=== PATIENT | female | born 1950 | race Caucasian/White ===

== ENCOUNTER 2020-04-29 08:07 | Outpatient (CLI) | payer MEDICARE, SELFPAY ==
--- NOTE | 2020-04-29 08:13 | MM_ITS ---
WS: [id number] Bilateral screening digital mammogram, 04/29/2020 Clinical Data: SCREENING Comparison: 06/01/2017, 05/16/2015, 05/12/2015, 04/25/2014, 04/18/2013, 04/05/2013, 05/17/2011, 2009, 04/08/2009, 01/09/2008. Findings: The breast parenchymal pattern shows fibroglandular tissue No spiculated masses or clustered calcific ations are seen. There are no secondary signs of carcinoma. MM/[place] [id number] Impression: 1. Negative bilateral mammogram unchanged. 2. Recommend annual screening mammograms. BIRADS: 1-Negative FOLLOW UP: 1 Year Follow-up The CAD credit report checker was used.
== END 2020-04-29 08:08 | disposition home or self-care (01) ==
LOC: RADSHAW 08:11
PROVIDERS: PCP Family Medicine; Visit Provider Family Medicine
DX: Z12.31 Encounter for screening mammogram for malignant neoplasm of breast (principal)
CPT/HCPCS: 77067

== ENCOUNTER → 2020-06-30 14:58 | Outpatient (BNVA) | payer MEDICARE, SELFPAY | PROVIDERS: PCP Family Medicine; Visit Provider Nurse Practitioner Family | DX: J06.9 Acute upper respiratory infection, unspecified (principal) | CPT/HCPCS: 87635 ==

== ENCOUNTER 2020-12-09 23:18 | Emergency (ER) | payer MEDICARE, SELFPAY ==
[2020-12-09 23:40] VITALS: BP 180/92; PULSE 77; RESP 16; TEMP 36.1; O2SAT 97; BMI 23.3
--- NOTE | 2020-12-10 00:45 | XRR_ITS ---
PROCEDURE INFORMATION: Exam: XR Chest Exam date and time: 12/10/2020 12:45 AM Age: 70 years old Clinical indication: Prior surgery; Surgery type: Chest port. ; Patient HX: Hypertensive. History of afib and ovarian cancer. ; Additional info: Cough TECHNIQUE: Imaging protocol: XR of the chest. Views: 1 view. COMPARISON: CR Chest 1 [place] [id number] 04/09/2019 8:15 PM FINDINGS: Tubes, catheters and devices: There is a left MediPort the tip in the mid superior vena cava. Lungs: Unremarkable. No consolidation. Pleural spaces: Unremarkable. No pleural effusion. No pneumothorax. Heart/Mediastinum: Unremarkable. No cardiomegaly. Bones/joints: Unremarkable. XR/XR chest 1V portable [id number] IMPRESSION: No acute disease.
--- NOTE | 2020-12-10 00:46 | W.ED.GENADLT ---
HPI - General Adult General: Chief complaint: Headache Stated complaint: high bp Time Seen by Provider: 12/10/20 00:40 History of Present Illness: HPI narrative: This patient is a 70-year-old female who presents to the emergency department complaint of headache related to high blood pressure. Patient states she has been having issues with her blood pressure and keeping a blood pressure log. Patient does provide a blood pressure log for review. Patient just today along with us checked her blood pressure at the least 12-15 times. Some with being in within 2 minutes of the previous checking. Patient states she gets anxious about her blood pressure so she takes it often. Patient's blood pressure upon arrival was 207/109. Patient states mild headache but does not describe any other significant significant symptoms. Patient states she also is undergoing chemotherapy due to ovarian cancer. Will do medical evaluation treat as needed Onset (ago): day(s) Location: head Severity: similar to prior episodes Associated symptoms: Deny chest pain, dyspnea, headache(s), nausea, rash, palpitations or vomiting Review of Systems General: Reports: 10 or more systems reviewed and unremarkable except in HPI and below Const: Denies: fever(s), chills, body aches or fatigue Eyes: Denies: change in vision or blurry vision ENMT: Denies: throat pain, hoarseness or mouth pain Card: Denies: chest pain, palpitations, irregular heart rhythm, edema, swelling of feet/ankles or lightheadedness Resp: Denies: dyspnea, productive cough, non-productive cough, wheezing or pain on inspiration GI: Denies: abdominal pain, nausea or vomiting : Denies: flank pain, difficulty voiding, dysuria, urinary frequency, urinary urgency or urinary hesitancy Musc: Denies: neck pain, back pain, extremity pain, extremity swelling, joint pain, joint swelling, joint redness, joint warmth or limited range of motion Skin/Breast: Denies: rash, pruritus, erythema or skin tenderness Neuro: Denies: headache(s), numbness in extremities or weakness in extremities Psych: Denies: anxiety or depression PFSH ED PFSH: Medical History Accelerated essential hypertension Ovarian cancer at [facility] Social History Smoking and tobacco status: never smoked Household members: spouse Marital status: Current occupational status: retired Physical Exam Const: COMMON NORMALS: no acute distress, average body habitus, patient oriented x3, no limitations, healthy appearing, alert and well nourished HENMT: COMMON NORMALS: normocephalic, atraumatic, hearing grossly normal bilaterally, external ears normal, EAC's normal, TM's normal bilaterally, Normal external nose present, Normal nasal mucous membranes and turbinates present, moist oral mucous membranes, oropharynx normal, dentition normal and gingiva normal HEAD & SCALP: normocephalic and atraumatic NOSE: Normal external nose present and Normal nasal mucous membranes and turbinates present EXTERNAL EAR: Yes external ears normal EXTERNAL AUDITORY CANAL: EAC's normal TYMPANIC MEMBRANE: TM's normal bilaterally Neck/C-Spine: COMMON NORMALS: full ROM, no lymphadenopathy, supple, no meningeal signs, no JVD, Thyroid normal and No carotid bruits THYROID: Thyroid normal Chest: COMMONS NORMALS: normal inspection of the chest, normal palpation of entire chest wall, normal inspection of the breasts and normal palpation of the breasts Breast/axilla inspection: Yes normal inspection of the breasts BREAST/AXILLA PALPATION: Yes normal palpation of the breasts Resp: COMMON NORMALS: normal respiratory effort, No retractions, No use of accessory muscles, clear to auscultation bilaterally and percussion normal AUSCULTATION: clear to auscultation bilaterally PERCUSSION: percussion normal Cardio: COMMON NORMALS: no JVD, regular rate, regular rhythm, S1 normal heart sound present, S2 normal heart sound present, No gallops present (Cardio), No clicks present (Cardio), No murmurs present (Cardio), No rub (Cardio) and Peripheral pulses 2+ throughout RATE: regular rate RHYTHM: regular rhythm HEART SOUNDS: S1 normal heart sound present and S2 normal heart sound present PERIPHERAL PULSES: Peripheral pulses 2+ throughout GI: COMMON NORMALS: Normal to inspection, nondistended, normoactive bowel sounds present, Soft to palpation, non-tender, No hepatosplenomegaly present, no masses and no bruits PALPATION: Yes Soft to palpation and Yes No hepatosplenomegaly present : COMMON NORMALS: Yes no CVA tenderness BLADDER/KIDNEY EXAM: Yes no CVA tenderness Back/Pelvis: COMMON NORMALS: no CVA tenderness, thoracic and lumbar spine normal to inspection, no thoracic nor lumbar tenderness, thoraco-lumbar ROM normal and straight leg raise negative bilaterally Extremity: COMMON NORMALS: normal to inspection, full ROM, capillary refill normal, no joint enlargement, no clubbing, cyanosis or edema, no calf tenderness and no pedal edema Neuro: COMMON NORMALS: patient oriented x3 SENSORIUM/ORIENTATION: Yes alert MENINGEAL SIGNS: Yes no meningeal signs Course Reevaluation(s): Reevaluation #1: Patient is much improved patient is resting comfortably. Patient's blood pressures improved to 149/81. Pulse ox 77% heart rate 75. Patient states she is feeling much relaxed now after given the status of Ativan. Patient is to maintain blood pressure log as instructed. Follow-up with primary care physician. Patient may need additional medications to help with anxiety and tremor. Patient and family state understanding patient was offered a CT scan of the head with the patient declines. She will be given Tylenol discharge. Time: 02:14 Vital Signs: Vital signs: Vital Signs Temperature 97.0 F L 12/09/20 23:40 Pulse Rate 79 12/10/20 01:24 Respiratory Rate 19 H 12/10/20 01:24 Blood Pressure 176/93 12/10/20 01:24 Pulse Oximetry 97 12/10/20 01:24 MDM - General Adult MDM Narrative: Medical decision making narrative: This patient is a 70-year-old female who presents to the emergency department complaint of headache related to high blood pressure. Patient states she has been having issues with her blood pressure and keeping a blood pressure log. Patient does provide a blood pressure log for review. Patient just today along with us checked her blood pressure at the least 12-15 times. Some with being in within 2 minutes of the previous checking. Patient states she gets anxious about her blood pressure so she takes it often. Patient's blood pressure upon arrival was 207/109. Patient states mild headache but does not describe any other significant significant symptoms. Patient states she also is undergoing chemotherapy due to ovarian cancer. Will do medical evaluation treat as needed Patient is much improved patient is resting comfortably. Patient's blood pressures improved to 149/81. Pulse ox 77% heart rate 75. Patient states she is feeling much relaxed now after given the status of Ativan. Patient is to maintain blood pressure log as instructed. Follow-up with primary care physician. Patient may need additional medications to help with anxiety and tremor. Patient and family state understanding patient was offered a CT scan of the head with the patient declines. She will be given Tylenol discharge. Lab Data: Labs: Lab Results 12/10/20 12/10/20 12/10/20 Range/Units 00:53 00:54 00:54 WBC 9.2 (4.0-10.0) 10^3/ uL RBC 2.98 L (4.1-5.3) 10^6/u L Hgb 9.9 L (11.5-15.3) g/dL Hct 30.2 L (37.0-47.0) % MCV 101.3 H (81-99) fL MCH 33.2 (28.0-34.0) pg MCHC 32.8 (30.0-36.0) g/dL RDW 14.5 (12.1-15.1) % Plt Count 169 (130-400) 10^3/c mm MPV 10.2 (7.4-10.4) fL Neut % (Auto) 75.6 % Lymph % (Auto) 8.8 % [place] % (Auto) 10.1 % Eos % (Auto) 4.7 % Baso % (Auto) 0.5 % Neut # (Auto) 6.94 (1.8-7.7) 10^3/u L Lymph # (Auto) 0.8 (0.8-4.8) 10^3/u L [place] # (Auto) 0.9 (0.2-0.9) 10^3/u L Eos # (Auto) 0.4 (0.0-0.8) 10^3/u L Baso # (Auto) 0.1 (0.0-0.1) 10^3/u L Nucleated RBC % (a uto) 0 % Nucleated RBCs # 0.0 /100WBC PT 12.90 (12.1-14.9) SECO NDS INR 0.95 (0.8-1.2) APTT 27.8 (23.9-36.7) SECO NDS Sodium (136-145) mmol/L Potassium (3.5-5.1) mmol/L Chloride (98-107) mmol/L Carbon Dioxide (22-29) mmol/L Anion Gap (5-19) BUN (8-23) mg/dL Creatinine (0.5-0.9) mg/dL GFR Calculation (90-130) mL/min Glucose (65-115) mg/dL Calculated Osmolal ity (285-295) mOsm/k g Calcium (8.5-10.5) mg/dL Total Bilirubin (0.15-1.2) mg/dL AST (0-32) U/L ALT (0-33) U/L Alkaline Phosphata se (35-105) IU/L Total Protein (6.6-8.7) g/dL Albumin (3.5-5.2) g/dL Globulin (1.3-4.6) g/dL Urine Color Yellow (Yellow) Urine Appearance Clear (CLEAR) Urine pH 5 (5-7) Ur Specific Gravit y 1.010 (1.005-1.030) Urine Protein 3+ H (Negative) Urine Glucose (UA) Norm (Normal) Urine Ketones Negative (Negative) Urine Blood 2+ H (Negative) Urine Nitrate Negative (Negative) Urine Bilirubin Neg (Negative) Urine Urobilinogen Norm (Negative) mg/dL Ur Leukocyte Vaishnavi ase Negative (Negative) Urine RBC 0-4 H (0-2) /hpf Urine WBC 0-4 H (0-5) /hpf Ur Squamous Epith Cells 0-4 H (0-5) /hpf Amorphous Sediment 1+ /hpf Urine Bacteria Trace (NONE) /hpf Hyaline Casts 0-4 H /lpf Urine Mucus 2+ /hpf 06/16/21 Range/Units 00:54 WBC (4.0-10.0) 10^3/ uL RBC (4.1-5.3) 10^6/u L Hgb (11.5-15.3) g/dL Hct (37.0-47.0) % MCV (81-99) fL MCH (28.0-34.0) pg MCHC (30.0-36.0) g/dL RDW (12.1-15.1) % Plt Count (130-400) 10^3/c mm MPV (7.4-10.4) fL Neut % (Auto) % Lymph % (Auto) % [place] % (Auto) % Eos % (Auto) % Baso % (Auto) % Neut # (Auto) (1.8-7.7) 10^3/u L Lymph # (Auto) (0.8-4.8) 10^3/u L [place] # (Auto) (0.2-0.9) 10^3/u L Eos # (Auto) (0.0-0.8) 10^3/u L Baso # (Auto) (0.0-0.1) 10^3/u L Nucleated RBC % (a uto) % Nucleated RBCs # /100WBC PT (12.1-14.9) SECO NDS INR (0.8-1.2) APTT (23.9-36.7) SECO NDS Sodium 137 (136-145) mmol/L Potassium 3.4 L (3.5-5.1) mmol/L Chloride 102 (98-107) mmol/L Carbon Dioxide 22 (22-29) mmol/L Anion Gap 16.4 (5-19) BUN 19 (8-23) mg/dL Creatinine 1.1 H (0.5-0.9) mg/dL GFR Calculation 49.4 L (90-130) mL/min Glucose 116 H (65-115) mg/dL Calculated Osmolal ity 287 (285-295) mOsm/k g Calcium 8.7 (8.5-10.5) mg/dL Total Bilirubin 0.2 (0.15-1.2) mg/dL AST 21 (0-32) U/L ALT 12 (0-33) U/L Alkaline Phosphata se 90 (35-105) IU/L Total Protein 6.5 L (6.6-8.7) g/dL Albumin 3.7 (3.5-5.2) g/dL Globulin 2.8 (1.3-4.6) g/dL Urine Color (Yellow) Urine Appearance (CLEAR) Urine pH (5-7) Ur Specific Gravit y (1.005-1.030) Urine Protein (Negative) Urine Glucose (UA) (Normal) Urine Ketones (Negative) Urine Blood (Negative) Urine Nitrate (Negative) Urine Bilirubin (Negative) Urine Urobilinogen (Negative) mg/dL Ur Leukocyte Vaishnavi ase (Negative) Urine RBC (0-2) /hpf Urine WBC (0-5) /hpf Ur Squamous Epith Cells (0-5) /hpf Amorphous Sediment /hpf Urine Bacteria (NONE) /hpf Hyaline Casts /lpf Urine Mucus /hpf Discharge Plan Discharge Patient Disposition: Home Clinical Impression: Accelerated essential hypertension, Ovarian cancer, Headache, Tremor, Anxiety Condition: Stable Prescriptions: No Action aspirin 81 mg tablet,delayed release (DR/EC) 81 mg PO DAILY RF: 0 sertraline [Zoloft] 50 mg tablet 50 mg PO DAILY RF: 0 pantoprazole [Protonix] 40 mg tablet,delayed release (DR/EC) 40 mg PO DAILY RF: 0 Discharge Orders: Discharge ED (Routine); Ordered 12/10/20 Ordered By: Alexis Martinez Referrals: Luis Felipe Ramirez MD [Primary Care Provider] - Discharge Diet: Advance as tolerated Discharge Activity: Resume usual activity Patient Instructions: Opioid Safety Activity Restrictions/Additional Instructions: Patient is to maintain blood pressure log as instructed. Follow-up with primary care physician. Patient may need additional medications to help with anxiety and tremor. She will be given Tylenol discharge. 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
[2020-12-10 01:07] LABS: Glucose Urine UA Norm (Normal); Ketones Urine Negative (Negative); Protein Urine 3+ (Negative); Urine Appearance Clear (CLEAR); Urine Color Yellow (Yellow); pH Urine 5 (5-7)
[2020-12-10 01:08] LABS: Add Urine Microscopic? YES; Amorphous Sediment Urine 1+ /hpf; Bacteria Urine TRACE /hpf; Bilirubin Urine Neg (Negative); Blood Urine 2+ (Negative); Hyaline Casts Urine 0-4 /lpf; Leukocyte Esterase Urine Negative (Negative); Mucus Urine 2+ /hpf; Nitrate Urine Negative (Negative); RBC Urine 0-4 /hpf (0-2); Squamous Epithelial Cell Urine 0-4 /hpf (0-5); Urobilinogen Urine Norm (Negative); WBC Urine 0-4 /hpf (0-5)
[2020-12-10 01:16] LABS: INR 0.95 (0.8-1.2)
[2020-12-10 01:17] LABS: Partial Thromboplastin Time 27.8 SECONDS (23.9-36.7)
[2020-12-10] MEDS: hyDRALAzine 20 mg/mL INJ 1 mL 10 MG IVP (01:18)
[2020-12-10] MEDS: LORazepam 2 mg/mL INJ 1 mL IVP (01:19)
[2020-12-10 01:24] VITALS: BP 176/93; PULSE 79; RESP 19; O2SAT 97
[2020-12-10 01:24] LABS: Alanine Aminotransferase 12 U/L (0-33); Albumin Level 3.7 g/dL (3.5-5.2); Alkaline Phosphatase 90 IU/L (35-105); Anion Gap 16.4 (5-19); Aspartate Amino Transferase 21 U/L (0-32); Blood Urea Nitrogen 19 mg/dL (8-23); Calcium 8.7 mg/dL (8.5-10.5); Carbon Dioxide 22 mmol/L (22-29); Chloride 102 mmol/L (98-107); Globulin 2.8 g/dL (1.3-4.6); Glomerular Filtration Rate 49.4 mL/min (90-130); Glucose 116 mg/dL (65-115); Osmolality Calculated 287 mOsm/kg (285-295); Potassium 3.4 mmol/L (3.5-5.1); Sodium 137 mmol/L (136-145); Total Bilirubin 0.2 mg/dL (0.15-1.2); Total Protein 6.5 g/dL (6.6-8.7)
[2020-12-10 01:30] LABS: Basophils # 0.1 10^3/uL (0.0-0.1); Basophils % 0.5 %; Eosinophils # 0.4 10^3/uL (0.0-0.8); Eosinophils % 4.7 %; Hematocrit 30.2 % (37.0-47.0); Hemoglobin 9.9 g/dL (11.5-15.3); Lymphocytes # 0.8 10^3/uL (0.8-4.8); Lymphocytes % 8.8 %; Mean Corpuscular HGB Conc 32.8 g/dL (30.0-36.0); Mean Corpuscular Hemoglobin 33.2 pg (28.0-34.0); Mean Corpuscular Volume 101.3 fL (81-99); Mean Platelet Volume 10.2 fL (7.4-10.4); Monocytes # 0.9 10^3/uL (0.2-0.9); Monocytes % 10.1 %; Neutrophils # 6.94 10^3/uL (1.8-7.7); Neutrophils % 75.6 %; Nucleated Red Blood Cells % 0 %; Platelet Count 169 10^3/cmm (130-400); Red Blood Count 2.98 10^6/uL (4.1-5.3); Red Cell Distribution Width 14.5 % (12.1-15.1); White Blood Count 9.2 10^3/uL (4.0-10.0)
[2020-12-10 02:35] VITALS: BP 161/85; PULSE 81; RESP 18; O2SAT 97
== END 2020-12-10 02:35 | disposition home or self-care (01) ==
PROVIDERS: Emergency Provider Emergency Medicine; PCP Family Medicine
DX: R51.9 Headache, unspecified (principal); I10 Essential (primary) hypertension; R25.1 Tremor, unspecified; F41.9 Anxiety disorder, unspecified; C56.9 Malignant neoplasm of unspecified ovary; Z79.82 Long term (current) use of aspirin
CPT/HCPCS: 71045; 80053; 81001; 85025; 85610; 85730; 96374; 96375; 99283; J0360; J2060

== ENCOUNTER 2020-12-18 12:05 | Outpatient (CLI) | payer MEDICARE, SELFPAY ==
--- NOTE | 2020-12-18 | XR_ITS ---
WS: [id number] Chest 2 views, 12/18/2020 Clinical Data: DYSPNEA Comparison: Portable chest, 12/10/2020. Findings: No nodules, masses or effusions are seen. The heart is normal. The pulmonary vascularity is not increased. No pneumonia or pneumothorax is seen. The left Port-A-Cath remains in good position. The aortic arch and descending aorta show tortuosity. XR/XR chest 2V* [id number] Impression: Atherosclerosis.
--- NOTE | 2020-12-18 12:13 | NM_ITS ---
WS: [id number] NUCLEAR MEDICINE VENTILATION/PERFUSION LUNG SCAN HISTORY: DYSPNEA/?PE COMPARISON: 12/18/2020 chest radiograph TECHNIQUE: Ventilation: 32.4 mCi of Technetium 99 DTPA aerosol inhaled. Perfusion: 4.8 mCi of technetium 99m MAA IV. There are no wedge-shaped defects within either lung. Cardiac silhouette is identified and matched. T here are no unmatched defects. NM/NM pul vent and perfus* [id number] IMPRESSION: Normal VQ scan. No pulmonary embolism.
== END 2020-12-18 12:06 | disposition home or self-care (01) ==
LOC: RAD 12:10
PROVIDERS: PCP Family Medicine; Visit Provider Family Medicine
DX: R06.00 Dyspnea, unspecified (principal); I70.90 Unspecified atherosclerosis
CPT/HCPCS: 71046; 78014; A9540; A9567

== ENCOUNTER 2020-12-19 09:38 | Outpatient (CLI) | payer MEDICARE, SELFPAY ==
--- NOTE | 2020-12-19 10:00 | USCV_ITS ---
Vanessa Reis Age: 70 Gender: F : 1950 Exam Date: 12/19/2020 10:06 Ordering Phys: Luis Felipe Ramirez MD Technologist: ZULEMA [place] [facility] [facility] [place]ication: HTN Aortic Velocity @ SMA (cm/s) 133 RIGHT KIDNEY LEFT KIDNEY Velocity (cm/s) Velocity (cm/s) Sys/Gibbons Sys/Gibbons Resistive Index Resistive Index 58.0 / 14.0 0.76 Proximal Renal Artery 66.8 / 16.0 0.76 55.9 / 21.5 0.62 Mid Renal Artery 75.1 / 14.6 0.81 61.2 / 19.3 0.68 Distal Renal Artery 65.4 / 11.8 0.82 44.0 / 18.3 0.59 Hilar 36.9 / 7.0 0.81 18.0 / 6.9 0.62 Upper Pole 34.4 / 10.7 0.69 21.9 / 8.2 0.63 Mid Pole 16.2 / 3.8 0.77 19.3 / 6.4 0.67 Lower Pole 39.2 / 8.6 0.78 0.50 Renal Aortic Ratio 0.56 Accleration Index (cm/sec2) 807.00 Hilar 544.00 429.00 Upper Pole 843.00 627.00 Mid Pole 257.00 429.00 Lower Pole 389.00 109.1 Kidney Length (mm) 109.4 FINDINGS No evidence of abdominal aortic aneurysm. There is no evidence of hemodynamically significant right renal artery stenosis. There is no evidence of hemodynamically significant left renal artery stenosis. CONCLUSIONS There is no sonographic evidence of hemodynamically significant renal artery stenosis bilaterally. Dr. Anita Thomas DO (Electronically Signed) Final Date: 19 December 2020 10:47 S
== END 2020-12-19 09:39 | disposition home or self-care (01) ==
PROVIDERS: PCP Family Medicine; Visit Provider Family Medicine
DX: I16.0 Hypertensive urgency (principal); I10 Essential (primary) hypertension
CPT/HCPCS: 93975

== ENCOUNTER → 2021-02-10 09:58 | Day surgery (SDC) | payer MEDICARE, SELFPAY ==
[2021-02-10 10:10] VITALS: BP 177/88; PULSE 87; RESP 18; TEMP 36.8; O2SAT 97
[2021-02-10 10:14] VITALS: BMI 24.4
== END ==
PROVIDERS: PCP Family Medicine; Visit Provider Nurse Practitioner Family
DX: C57.01 Malignant neoplasm of right fallopian tube (principal)
CPT/HCPCS: 96368; 96523

== ENCOUNTER 2021-09-10 11:02 | Outpatient (CLI) | payer MEDICARE, SELFPAY ==
--- NOTE | 2021-09-10 12:47 | MM_ITS ---
WS: [id number] BILATERAL 3D TOMOSYNTHESIS DIGITAL SCREENING MAMMOGRAPHY WITH CAD CLINICAL INFORMATION: SCREEN HISTORY: Screening mammogram. No current complaints. COMPARISON: April 29, 2020 TECHNIQUE: Bilateral CC and MLO views. FINDINGS: Scattered fibroglandular densities bilaterally. No suspicious focal mass, asymmetry, calcifications, or architectural distortion. Punctate and lucent centered calcifications. No evidence of malignancy. MM/[place] [id number] IMPRESSION: BI-RADS: 2-Benign FOLLOW UP: 1 Year Follow-up Recommend return to annual screening mammography.
== END 2021-09-10 11:03 | disposition home or self-care (01) ==
LOC: RADSHAW 11:10
PROVIDERS: PCP Family Medicine; Visit Provider Family Medicine
DX: Z12.31 Encounter for screening mammogram for malignant neoplasm of breast (principal)
CPT/HCPCS: 77063; 77067

== ENCOUNTER → 2022-04-22 08:04 | Outpatient (BNVA) | payer MEDICARE, SELFPAY | PROVIDERS: PCP Family Medicine; Visit Provider Podiatrist Foot & Ankle Surgery | DX: L60.0 Ingrowing nail (principal); L60.8 Other nail disorders; L60.3 Nail dystrophy; M21.611 Bunion of right foot; M21.612 Bunion of left foot; M21.621 Bunionette of right foot; M21.622 Bunionette of left foot; G62.0 Drug-induced polyneuropathy; T45.1X5A Adverse effect of antineoplastic and immunosuppressive drugs, initial encounter | CPT/HCPCS: 99203 ==

== ENCOUNTER → 2022-06-03 08:45 | Outpatient (BNVA) | payer MEDICARE, SELFPAY | PROVIDERS: PCP Family Medicine; Visit Provider Podiatrist Foot & Ankle Surgery | DX: L60.0 Ingrowing nail (principal); G62.0 Drug-induced polyneuropathy; T45.1X5A Adverse effect of antineoplastic and immunosuppressive drugs, initial encounter; L60.8 Other nail disorders; L60.3 Nail dystrophy; M21.611 Bunion of right foot; M21.612 Bunion of left foot; M21.621 Bunionette of right foot; M21.622 Bunionette of left foot; Z92.21 Personal history of antineoplastic chemotherapy | CPT/HCPCS: 99213 ==

== ENCOUNTER → 2022-07-09 15:44 | Outpatient (BNVA) | payer MEDICARE, SELFPAY | PROVIDERS: PCP Family Medicine; Visit Provider Emergency Medicine | DX: S49.91XA Unspecified injury of right shoulder and upper arm, initial encounter (principal); X58.XXXA Exposure to other specified factors, initial encounter | CPT/HCPCS: 73060; 73080 ==

== ENCOUNTER → 2022-07-15 14:31 | Outpatient (BNVA) | payer MEDICARE, SELFPAY | PROVIDERS: PCP Family Medicine; Referring Provider Emergency Medicine; Visit Provider Physician Assistant | DX: S52.121A Displaced fracture of head of right radius, initial encounter for closed fracture (principal); S42.209A Unspecified fracture of upper end of unspecified humerus, initial encounter for closed fracture; W19.XXXA Unspecified fall, initial encounter | CPT/HCPCS: 73030; 73080; 99203 ==

== ENCOUNTER → 2022-08-05 09:50 | Outpatient (BNVA) | payer MEDICARE, SELFPAY | PROVIDERS: PCP Family Medicine; Visit Provider Physician Assistant | DX: S42.209A Unspecified fracture of upper end of unspecified humerus, initial encounter for closed fracture (principal); S59.801A Other specified injuries of right elbow, initial encounter; X58.XXXA Exposure to other specified factors, initial encounter | CPT/HCPCS: 11750; 73030; 73070; 99213 ==

== ENCOUNTER 2022-08-17 08:37 | Outpatient (RCR) | payer MEDICARE, SELFPAY | END 2022-08-24 23:59 | disposition home or self-care (01) | LOC: SPT 08:37 | PROVIDERS: PCP Family Medicine; Visit Provider Physician Assistant | DX: S42.211D Unspecified displaced fracture of surgical neck of right humerus, subsequent encounter for fracture with routine healing (principal); X58.XXXD Exposure to other specified factors, subsequent encounter | CPT/HCPCS: 97110; 97161 ==

== ENCOUNTER → 2022-08-19 09:14 | Outpatient (BNVA) | payer MEDICARE, SELFPAY | PROVIDERS: PCP Family Medicine; Visit Provider Physician Assistant | DX: S42.201D Unspecified fracture of upper end of right humerus, subsequent encounter for fracture with routine healing (principal); X58.XXXD Exposure to other specified factors, subsequent encounter; L60.0 Ingrowing nail; G62.0 Drug-induced polyneuropathy; T45.1X5A Adverse effect of antineoplastic and immunosuppressive drugs, initial encounter; L60.8 Other nail disorders; L60.3 Nail dystrophy; M21.611 Bunion of right foot; M21.612 Bunion of left foot; M21.621 Bunionette of right foot; M21.622 Bunionette of left foot | CPT/HCPCS: 11750; 73030; 99213 ==

== ENCOUNTER 2022-08-25 06:00 | Outpatient (RCR) | payer MEDICARE, SELFPAY | END 2022-09-15 12:38 | disposition home or self-care (01) | LOC: SPT 06:00 | PROVIDERS: PCP Family Medicine; Visit Provider Physician Assistant | DX: S42.211D Unspecified displaced fracture of surgical neck of right humerus, subsequent encounter for fracture with routine healing (principal); X58.XXXD Exposure to other specified factors, subsequent encounter | CPT/HCPCS: 97110; 97150 ==

== ENCOUNTER → 2022-09-28 10:30 | Outpatient (BNVA) | payer MEDICARE, SELFPAY | PROVIDERS: PCP Family Medicine; Visit Provider Physician Assistant | DX: S42.201D Unspecified fracture of upper end of right humerus, subsequent encounter for fracture with routine healing (principal); X58.XXXD Exposure to other specified factors, subsequent encounter | CPT/HCPCS: 73060; 99213 ==

== ENCOUNTER 2022-10-22 08:11 | Outpatient (CLI) | payer MEDICARE, SELFPAY ==
--- NOTE | 2022-10-22 08:34 | MM_ITS ---
WS: [id number] BILATERAL SCREENING DIGITAL TOMOSYNTHESIS MAMMOGRAM WITH CAD HISTORY: SCREEN COMPARISON: 09/10/2021 and 04/29/2020 Bilateral CC and MLO views with tomosynthesis and synthetic mammography submitted. Computer aided det ection analyzed. Breast composition: There are scattered areas of fibroglandular density. No suspicious masses, microc alcifications or architectural distortion. Benign calcifications in each breast. MM/[place] [id number] IMPRESSION: BI-RADS: 2-Benign FOLLOW UP: 1 Year Follow-up
== END 2022-10-22 08:12 | disposition home or self-care (01) ==
LOC: RAD 08:16
PROVIDERS: PCP Family Medicine; Visit Provider Family Medicine
DX: Z12.31 Encounter for screening mammogram for malignant neoplasm of breast (principal)
CPT/HCPCS: 77063; 77067

== ENCOUNTER 2023-02-07 15:43 | Emergency (ER) | payer MEDICARE, SELFPAY ==
[2023-02-07 16:04] VITALS: BP 137/76; PULSE 92; RESP 16; TEMP 36.6; O2SAT 95; BMI 22.3
--- NOTE | 2023-02-07 16:41 | PC.PHAR ---
pt states she takes care of her own medications-pt states she is on a clinical trial in [place] [id number] and [id number] pt states its a 3 week cycle-pt has paperwork with her about her clinical trial-pt states she takes hydralazine 50mg tid prn pt states her clinical trial medication makes her bp low ext shows last filled 01/17/23 30d/s 50mg tid-pt states she has oxycodone ir 5mg filled on 01/19/23 5d/s but states she is not taking them states she still has some at home-notes are made in the pharmacy comments
--- NOTE | 2023-02-07 16:44 | ED_ITS ---
Documented by User: [email or web address] Solomon 02/07/23 16:58 HPI - General Adult General: Chief complaint: Urogenital-Female Stated complaint: physician, creatine checked, weak, pain Time Seen by Provider: 02/07/23 16:22 Source: patient Mode of arrival: ambulatory Limitations: no limitations History of Present Illness: Patient is a 72-year-old female with past medical history of ovarian cancer who presents to the emergency department due to abnormal labs. Patient is currently on clinical trial medication for her ovarian cancer, as the patient is status post total hysterectomy. She was due for a routine CT scan at her last visit with the oncologist, but was unable to obtain this as her screening creatinine was elevated at 2.4. This pushed back her CT scan, and she presents today for recheck of her creatinine as her next appointment is this Tuesday at [facility] in [place]. Her only complaints at this time are some right suprapubic pain as well as generalized weakness. The pain is mild and she states she has had this before, but has never had it worked up. She denies any urinary symptoms and states that she has no histories of urinary tract infections or kidney stones. She also comments that her weakness has persisted since beginning the clinical trial medication. Patient is followed by urologist in [facility], who is due to replace or remove a right ureteral stent on the of this month. Patient states that her total hysterectomy resulted in a right hydronephrosis, which is what prompted her to receive a ureteral stent, she reports. Patient denies any chest pain, shortness of breath, fevers, nausea, vomiting, flank pain, or any other symptoms at this time. Associated symptoms: Deny chest pain, dyspnea, nausea, rash, palpitations, syncope or vomiting Review of Systems Const: Reports: other (Reports abnormal lab); Denies: fever(s) or chills Eyes: Denies: change in vision or blurry vision Card: Denies: chest pain, palpitations, irregular heart rhythm, li ghtheadedness, syncope or dyspnea on exertion Resp: Denies: dyspnea, productive cough or pain on inspiration GI: Reports: abdominal pain (Right suprapubic); Denies: nausea, vomiting, heartburn or diarrhea : Denies: flank pain, difficulty voiding, dysuria, urinary frequency, urinary urgency, urinary hesitancy, oliguria or hematuria Musc: Reports: muscle weakness; Denies: neck pain, back pain or joint pain Skin/Breast: Denies: rash PFSH ED PFSH: Medical History Accelerated essential hypertension Anxiety Hypertension Ovarian cancer at [facility] Social History Smoking and tobacco status: never smoked Household members: spouse Marital status: Current occupational status: retired Physical Exam Const: COMMON NORMALS: no acute distress, patient oriented x3, alert and well nourished HENMT: COMMON NORMALS: normocephalic and atraumatic HEAD & SCALP: normocep halic and atraumatic Neck/C-Spine: COMMON NORMALS: full ROM, no lymphadenopathy, supple and no meningeal signs Chest: COMMONS NORMALS: normal inspection of the chest Resp: COMMON NORMALS: normal respiratory effort and clear to auscultation bilaterally AUSCULTATION: clear to auscultation bilaterally Cardio: COMMON NORMALS: regular rate and regular rhythm RATE: regular rate RHYTHM: regular rhythm GI: COMMON NORMALS: Normal to inspection, nondistended, normoactive bowel sounds present, Soft to palpation, No hepatosplenomegaly present and no masses PALPATION: Yes Soft to palpation, Yes Tenderness to palpation present (GI) (Right suprapubic area), No Guarding due to palpation present (GI), No Rigid due to palpation and Yes No hepatosplenomegaly present : COMMON NORMALS: Yes no CVA tenderness BLADDER/KIDNEY EXAM: Yes no CVA tenderness Back/Pelvis: COMMON NORMALS: no CVA tenderness and thoracic and lumbar spine normal to inspection Extremity: COMMON NORMALS: normal to inspection Neuro: COMMON NORMALS: patient oriented x3 SENSORIUM/ORIENTATION: Yes alert MENINGEAL SIGNS: Yes no meningeal signs Skin: COMMON NORMALS: no rashes or lesions noted GENERAL SKIN EXAM: no rashes or lesions noted Course Vital Signs: Vital signs: Vital Signs Temperature 97.9 F 02/07/23 16:04 Pulse Rate 77 02/07/23 17:05 Respiratory Rate 18 02/07/23 17:05 Blood Pressure 167/88 02/07/23 17:05 Pulse Oximetry 99 02/07/23 17:05 Oxygen Delivery Me thod Room Air 02/07/23 17:05 [facility] - General Adult Lab Data 02/07/23 16:49 02/07/23 16:49 Laboratory Results WBC 6.9 10^3/uL (4.0-10.0) 02/07/23 16:49 RBC 2.87 10^6/uL (4.1-5.3) L 02/07/23 16:49 Hgb 8.4 g/dL (11.5-15.3) L 02/07/23 16:49 Hct 26.9 % (37.0-47.0) L 02/07/23 16:49 MCV 93.7 fl (81-99) 02/07/23 16:49 MCH 29.3 pg (28.0-34.0) 02/07/23 16:49 MCHC 31.2 g/dL (30.0-36.0) 02/07/23 16:49 RDW 16.5 % (12.1-15.1) H 02/07/23 16:49 Plt Count 233 10^3/cmm (130-400) 02/07/23 16:49 MPV 9.3 fL (7.4-10.4) 02/07/23 16:49 Neut % (Auto) 78.3 % 02/07/23 16:49 Lymph % (Auto) 9.8 % 02/07/23 16:49 Williamson % (Auto) 9.6 % 02/07/23 16:49 Eos % (Auto) 1.3 % 02/07/23 16:49 Baso % (Auto) 0.3 % 02/07/23 16:49 Neut # (Auto) 5.38 10^3/uL (1.8-7.7) 02/07/23 16:49 Lymph # (Auto) 0.7 10^3/uL (0.8-4.8) L 02/07/23 16:49 Williamson # (Auto) 0.7 10^3/uL (0.2-0.9) 02/07/23 16:49 Eos # (Auto) 0.1 10^3/uL (0.0-0.8) 02/07/23 16:49 Baso # (Auto) 0.0 10^3/uL (0.0-0.1) 02/07/23 16:49 Nucleated RBC % (auto) 0 % 02/07/23 16:49 Nucleated RBCs # 0.0 /100WBC 02/07/23 16:49 Sodium 135 mmol/L (136-145) L 02/07/23 16:49 Potassium 4.2 mmol/L (3.5-5.1) 02/07/23 16:49 Chloride 103 mmol/L (98-107) 02/07/23 16:49 Carbon Dioxide 19 mmol/L (22-29) L 02/07/23 16:49 Anion Gap 17.2 (5-19) 02/07/23 16:49 BUN 17 mg/dL (8-23) 02/07/23 16:49 Creatinine 1.5 mg/dL (0.5-0.9) H 02/07/23 16:49 GFR Calculation 34.3 mL/min (90-130) L 02/07/23 16:49 Glucose 83 mg/dL (65-115) 02/07/23 16:49 Calculated Osmolality 281 mOsm/kg (285-295) L 02/07/23 16:49 Calcium 9.1 mg/dL (8.5-10.5) 02/07/23 16:49 Total Bilirubin 0.4 mg/dL (0.15-1.2) 02/07/23 16:49 AST 22 U/L (0-32) 02/07/23 16:49 ALT 8 U/L (0-33) 02/07/23 16:49 Alkaline Phosphatase 80 U/L (35-105) 02/07/23 16:49 Total Protein 7.2 g/dL (6.6-8.7) 02/07/23 16:49 Albumin 4.0 g/dL (3.5-5.2) 02/07/23 16:49 Globulin 3.2 g/dL (1.3-4.6) 02/07/23 16:49 Urine Color Yellow (Yellow) 02/07/23 16:18 Urine Appearance Sl hazy (CLEAR) A 02/07/23 16:18 Urine pH 5 (5-7) 02/07/23 16:18 Ur Specific [place] 1.010 (1.005-1.030) 02/07/23 16:18 Urine Protein 1+ (Negative) H 02/07/23 16:18 Urine Glucose (UA) Norm (Normal) 02/07/23 16:18 Urine Ketones Negative (Negative) 02/07/23 16:18 Urine Blood 2+ (Negative) H 02/07/23 16:18 Urine Nitrate Negative (Negative) 02/07/23 16:18 Urine Bilirubin Neg (Negative) 02/07/23 16:18 Urine Urobilinogen Norm mg/dL (Negative) 02/07/23 16:18 Ur Leukocyte Esterase 2+ (Negative) H 02/07/23 16:18 Urine RBC 0-4 /hpf (0-2) H 02/07/23 16:18 Urine WBC 15-25 /hpf (0-5) H 02/07/23 16:18 Ur Squamous Epith Cells 0-4 /hpf (0-5) H 02/07/23 16:18 Amorphous Sediment Not Reportable 02/07/23 16:18 Urine Bacteria 2+ /hpf (NONE) H 02/07/23 16:18 Hyaline Casts 5-10 /lpf H 02/07/23 16:18 Urine Mucus Trace /hpf 02/07/23 16:18 Discharge Plan Discharge Patient Disposition: Home Clinical Impression: CKD (chronic kidney disease) Qualifiers: Chronic kidney disease stage: unspecified stage Qualified Code(s): N18.9 - C hronic kidney disease, unspecified Ovarian cancer Qualifiers: Laterality: unspecified laterality Qualified Code(s): C56.9 - Malignant neoplasm of unspecified ovary Condition: Stable Prescriptions: No Action clonazepam 0.5 mg tablet 0.5 mg PO BID Qty: 60 5RF multivitamin Tablet 1 tab PO DAILY PRN (Reason: unknown) sertraline 100 mg tablet 100 mg PO BEDTIME prochlorperazine maleate 10 mg tablet 10 mg PO Q6H PRN (Reason: Pain) Tylenol Ex Str Rapid Release 500 mg Tablet 1,000 mg PO Q6H PRN (Reason: Pain) folic acid 1 mg tablet 1 mg PO DAILY oxycodone 5 mg tablet 5 - 10 mg PO TID PRN (Reason: Pain) Rp-6306 [id number] Clinical Trial See Rx Instructions .ROUTE .COMPLEX Rx Instructions: 3 week cycle from [facility] (pt has paperwork with information on clinical trial)Rp-6306 & Rp-3500 hydralazine 50 mg tablet 50 mg PO TID PRN (Reason: Blood Pressure) Discharge Orders: Discharge ED (Routine); Ordered 02/07/23 Ordered By: Beto Villa Referrals: Luis Felipe Ramirez MD [Primary Care Provider] - Discharge Diet: Usual diet Discharge Activity: Increase activity as tolerated Patient Instructions: Impaired Kidney Function (ED) Activity Restrictions/Additional Instructions: Continue routine medications and treatments. Follow-up with oncologist and urologist as scheduled. Return to ER for worsening symptoms such as fever greater than 100.4, inability to hold fluids down, or new concerns. A urine culture has been obtained and will take 3 days for final results if any signs of infection are noted we will contact you. Sign Out Sign Out Data: Patient Sign Out occurred on 02/07/23 at 17:10. Patient's care was discussed, and care was transferred from to Beto Villa. Coding Level of Care Code ED [employer] for [employer] Documented by User: [email or web address] Lozada 02/07/23 17:44 HPI - General Adult General: Chief complaint: Urogenital-Female Stated complaint: physician, creatine checked, weak, pain Time Seen by Provider: 02/07/23 16:22 [facility] ED PFSH: Medical History Accelerated essential hypertension Anxiety Hypertension Ovarian cancer at [facility] Social History Smoking and tobacco status: never smoked Household members: spouse Marital status: Current occupational status: retired Course Vital Signs: Vital signs: Vital Signs Temperature 97.9 F 02/07/23 16:04 Pulse Rate 77 02/07/23 17:05 Respiratory Rate 18 02/07/23 17:05 Blood Pressure 167/88 02/07/23 17:05 Pulse Oximetry 99 02/07/23 17:05 Oxygen Delivery Me thod Room Air 02/07/23 17:05 MDM - General Adult Medical Decision Making This patient was left to me by Leny Clemens PA-C. Patient was referred to the emergency department for recheck of creatinine. Patient had no specific complaints but does have a history of chronic kidney disease and renal stent due to hydronephrosis. Patient states that she was sent to the ER for recheck on her creatinine prior to a visit to her oncologist on Tuesday for possible CT scan. Patient reports that she does not drink enough water. Patient denies any other complaints but generalized weakness. Differential diagnosis includes UTI, chronic kidney disease, hydronephrosis, anemia. Patient does have some anemia with a hemoglobin of 8.4. Creatinine is 1.5 which is improved from 2.4 on a previous exam. Urinalysis was not a clean-catch and had some red blood cells and white blood cells and was referred for culture. Patient had no fever or other significant signs of infection most likely the abnormalities on the urine is secondary to the stent placement. Recommend drinking plenty of fluids and following up with urologist and awaiting culture report before starting antibiotics. Patient reported understanding and agreed to plan. Lab Data 02/07/23 16:49 02/07/23 16:49 Laboratory Results WBC 6.9 10^3/uL (4.0-10.0) 02/07/23 16:49 RBC 2.87 10^6/uL (4.1-5.3) L 02/07/23 16:49 Hgb 8.4 g/dL (11.5-15.3) L 02/07/23 16:49 Hct 26.9 % (37.0-47.0) L 02/07/23 16:49 MCV 93.7 fl (81-99) 02/07/23 16:49 MCH 29.3 pg (28.0-34.0) 02/07/23 16:49 MCHC 31.2 g/dL (30.0-36.0) 02/07/23 16:49 RDW 16.5 % (12.1-15.1) H 02/07/23 16:49 Plt Count 233 10^3/cmm (130-400) 02/07/23 16:49 MPV 9.3 fL (7.4-10.4) 02/07/23 16:49 Neut % (Auto) 78.3 % 02/07/23 16:49 Lymph % (Auto) 9.8 % 02/07/23 16:49 Williamson % (Auto) 9.6 % 02/07/23 16:49 Eos % (Auto) 1.3 % 02/07/23 16:49 Baso % (Auto) 0.3 % 02/07/23 16:49 Neut # (Auto) 5.38 10^3/uL (1.8-7.7) 02/07/23 16:49 Lymph # (Auto) 0.7 10^3/uL (0.8-4.8) L 02/07/23 16:49 Williamson # (Auto) 0.7 10^3/uL (0.2-0.9) 02/07/23 16:49 Eos # (Auto) 0.1 10^3/uL (0.0-0.8) 02/07/23 16:49 Baso # (Auto) 0.0 10^3/uL (0.0-0.1) 02/07/23 16:49 Nucleated RBC % (auto) 0 % 02/07/23 16:49 Nucleated RBCs # 0.0 /100WBC 02/07/23 16:49 Sodium 135 mmol/L (136-145) L 02/07/23 16:49 Potassium 4.2 mmol/L (3.5-5.1) 02/07/23 16:49 Chloride 103 mmol/L (98-107) 02/07/23 16:49 Carbon Dioxide 19 mmol/L (22-29) L 02/07/23 16:49 Anion Gap 17.2 (5-19) 02/07/23 16:49 BUN 17 mg/dL (8-23) 02/07/23 16:49 Creatinine 1.5 mg/dL (0.5-0.9) H 02/07/23 16:49 GFR Calculation 34.3 mL/min (90-130) L 02/07/23 16:49 Glucose 83 mg/dL (65-115) 02/07/23 16:49 Calculated Osmolality 281 mOsm/kg (285-295) L 02/07/23 16:49 Calcium 9.1 mg/dL (8.5-10.5) 02/07/23 16:49 Total Bilirubin 0.4 mg/dL (0.15-1.2) 02/07/23 16:49 AST 22 U/L (0-32) 02/07/23 16:49 ALT 8 U/L (0-33) 02/07/23 16:49 Alkaline Phosphatase 80 U/L (35-105) 02/07/23 16:49 Total Protein 7.2 g/dL (6.6-8.7) 02/07/23 16:49 Albumin 4.0 g/dL (3.5-5.2) 02/07/23 16:49 Globulin 3.2 g/dL (1.3-4.6) 02/07/23 16:49 Urine Color Yellow (Yellow) 02/07/23 16:18 Urine Appearance Sl hazy (CLEAR) A 02/07/23 16:18 Urine pH 5 (5-7) 02/07/23 16:18 Ur Specific [place] 1.010 (1.005-1.030) 02/07/23 16:18 Urine Protein 1+ (Negative) H 02/07/23 16:18 Urine Glucose (UA) Norm (Normal) 02/07/23 16:18 Urine Ketones Negative (Negative) 02/07/23 16:18 Urine Blood 2+ (Negative) H 02/07/23 16:18 Urine Nitrate Negative (Negative) 02/07/23 16:18 Urine Bilirubin Neg (Negative) 02/07/23 16:18 Urine Urobilinogen Norm mg/dL (Negative) 02/07/23 16:18 Ur Leukocyte Esterase 2+ (Negative) H 02/07/23 16:18 Urine RBC 0-4 /hpf (0-2) H 02/07/23 16:18 Urine WBC 15-25 /hpf (0-5) H 02/07/23 16:18 Ur Squamous Epith Cells 0-4 /hpf (0-5) H 02/07/23 16:18 Amorphous Sediment Not Reportable 02/07/23 16:18 Urine Bacteria 2+ /hpf (NONE) H 02/07/23 16:18 Hyaline Casts 5-10 /lpf H 02/07/23 16:18 Urine Mucus Trace /hpf 02/07/23 16:18 Discharge Plan Discharge Patient Disposition: Home Clinical Impression: CKD (chronic kidney disease) Qualifiers: Chronic kidney disease stage: unspecified stage Qualified Code(s): N18.9 - Chronic kidney disease, unspecified Ovarian cancer Qualifiers: Laterality: unspecified laterality Qualified Code(s): C56.9 - Malignant neoplasm of unspecified ovary Condition: Stable Prescriptions: No Action clonazepam 0.5 mg tablet 0.5 mg PO BID Qty: 60 5RF multivitamin Tablet 1 tab PO DAILY PRN (Reason: unknown) sertraline 100 mg tablet 100 mg PO BEDTIME prochlorperazine maleate 10 mg tablet 10 mg PO Q6H PRN (Reason: Pain) Tylenol Ex Str Rapid Release 500 mg Tablet 1,000 mg PO Q6H PRN (Reason: Pain) folic acid 1 mg tablet 1 mg PO DAILY oxycodone 5 mg tablet 5 - 10 mg PO TID PRN (Reason: Pain) [id number] Rp-3500 Clinical Trial See Rx Instructions .ROUTE .COMPLEX Rx Instructions: 3 week cycle from [facility] (pt has paperwork with information on clinical trial)Rp-6306 & Rp-3500 hydralazine 50 mg tablet 50 mg PO TID PRN (Reason: Blood Pressure) Discharge Orders: Discharge ED (Routine); Ordered 02/07/23 Ordered By: Beto Villa Referrals: Luis Felipe Ramirez MD [Primary Care Provider] - Discharge Diet: Usual diet Discharge Activity: Increase activity as tolerated Patient Instructions: Impaired Kidney Function (ED) Activity Restrictions/Additional Instructions: Continue routine medications and treatments. Follow-up with oncologist and urologist as scheduled. Return to ER for worsening symptoms such as fever greater than 100.4, inability to hold fluids down, or new concerns. A urine culture has been obtained and will take 3 days for final results if any signs of infection are noted we will contact you. Sign Out Sign Out Data: Patient Sign Out occurred on 02/07/23 at 17:10. Patient's care was discussed, and care was transferred from to Beto Villa. Coding Level of Care Code ED [employer] for [employer] Garza
[2023-02-07] MEDS: sodium chloride 0.9% 1,000 ML 999 ML IV (17:02)
[2023-02-07 17:05] VITALS: BP 167/88; PULSE 77; RESP 18; O2SAT 99
[2023-02-07 17:06] LABS: Basophils % 0.3 %; Eosinophils # 0.1 10^3/uL (0.0-0.8); Eosinophils % 1.3 %; Hematocrit 26.9 % (37.0-47.0); Hemoglobin 8.4 g/dL (11.5-15.3); Lymphocytes # 0.7 10^3/uL (0.8-4.8); Lymphocytes % 9.8 %; Mean Corpuscular HGB Conc 31.2 g/dL (30.0-36.0); Mean Corpuscular Hemoglobin 29.3 pg (28.0-34.0); Mean Corpuscular Volume 93.7 fl (81-99); Mean Platelet Volume 9.3 fL (7.4-10.4); Monocytes # 0.7 10^3/uL (0.2-0.9); Monocytes % 9.6 %; Neutrophils # 5.38 10^3/uL (1.8-7.7); Neutrophils % 78.3 %; Nucleated Red Blood Cells % 0 %; Platelet Count 233 10^3/cmm (130-400); Red Blood Count 2.87 10^6/uL (4.1-5.3); Red Cell Distribution Width 16.5 % (12.1-15.1); White Blood Count 6.9 10^3/uL (4.0-10.0)
[2023-02-07 17:22] LABS: Add Urine Microscopic? YES; Bilirubin Urine Neg (Negative); Blood Urine 2+ (Negative); Glucose Urine UA Norm (Normal); Ketones Urine Negative (Negative); Leukocyte Esterase Urine 2+ (Negative); Nitrate Urine Negative (Negative); Protein Urine 1+ (Negative); Urine Appearance SL Hazy (CLEAR); Urine Color Yellow (Yellow); Urobilinogen Urine Norm (Negative); pH Urine 5 (5-7)
[2023-02-07 17:23] LABS: Add Urine Culture? Yes; Bacteria Urine 2+ /hpf; Mucus Urine TRACE /hpf; RBC Urine 0-4 /hpf (0-2); Squamous Epithelial Cell Urine 0-4 /hpf (0-5); WBC Urine 15-25 /hpf (0-5)
[2023-02-07 17:27] LABS: Alanine Aminotransferase 8 U/L (0-33); Alkaline Phosphatase 80 U/L (35-105); Anion Gap 17.2 (5-19); Aspartate Amino Transferase 22 U/L (0-32); Blood Urea Nitrogen 17 mg/dL (8-23); Calcium 9.1 mg/dL (8.5-10.5); Carbon Dioxide 19 mmol/L (22-29); Chloride 103 mmol/L (98-107); Globulin 3.2 g/dL (1.3-4.6); Glomerular Filtration Rate 34.3 mL/min (90-130); Glucose 83 mg/dL (65-115); Osmolality Calculated 281 mOsm/kg (285-295); Potassium 4.2 mmol/L (3.5-5.1); Sodium 135 mmol/L (136-145); Total Bilirubin 0.4 mg/dL (0.15-1.2); Total Protein 7.2 g/dL (6.6-8.7)
[2023-02-07 17:42] VITALS: BP 169/86; PULSE 79; RESP 18; O2SAT 96
== END 2023-02-07 18:09 | disposition home or self-care (01) ==
PROVIDERS: Physician Assistant; Emergency Provider Nurse Practitioner Family; PCP Family Medicine
DX: I12.9 Hypertensive chronic kidney disease with stage 1 through stage 4 chronic kidney disease, or unspecified chronic kidney disease (principal); N18.9 Chronic kidney disease, unspecified; C56.9 Malignant neoplasm of unspecified ovary; Z79.899 Other long term (current) drug therapy
CPT/HCPCS: 80053; 81001; 85025; 87086; 99284; J7030

== ENCOUNTER 2023-04-27 15:00 | Outpatient (CLI) | payer MEDICARE, SELFPAY ==
--- NOTE | 2023-04-27 15:00 | XR_ITS ---
WS: [id number] SCREENING DEXA SCAN [facility] CLINICAL INFORMATION: screening COMPARISON: 2019 FINDINGS: The L1-L4 bone mineral density measures 0.827 g/cm2. This corresponds to a T score score of -2.9 and Z score of -0.7. Left femoral neck bone mineral density measures 0.656 g/cm2. This corresponds to a T score of -2.8 an d Z score of -0.9. Right femoral neck bone mineral density measures 0.720 g/cm2. This corresponds to a T score -2.3of an d Z score of -0.4. Mean femoral neck bone mineral density measures 0.688 g/cm2. This corresponds to a T score of -2.5 an d Z score of -0.6. IMPRESSION: Osteoporosis lumbar spine. Osteoporosis femoral necks. Patient's FRAX calculated 10 year probability for major osteoporotic fracture is 33.3% and osteoporot ic hip fracture is 15.6%. Bone mineral density in the lumbar spine decrease -14.4% Bone mineral density in the femoral necks decreased -17.7%
== END 2023-04-27 15:01 | disposition home or self-care (01) ==
LOC: RAD 15:00
PROVIDERS: PCP Family Medicine; Visit Provider Family Medicine
DX: Z13.820 Encounter for screening for osteoporosis (principal); M81.0 Age-related osteoporosis without current pathological fracture
CPT/HCPCS: 77080